=== PATIENT | male | born 2000 | race Asian ===

== ENCOUNTER 2022-12-11 09:49 | Emergency (ER) | payer BC ==
[~2022-12-11] VITALS: Ht 175.3 cm; Wt 86.2 kg
[2022-12-11 09:56] VITALS: BP 128/67; TEMP 97.9
== END 2022-12-11 11:26 | disposition home or self-care (01) ==
LOC: ED 09:49
DX: M54.59 Other low back pain (principal); X50.9XXA Other and unspecified overexertion or strenuous movements or postures, initial encounter; Y92.89 Other specified places as the place of occurrence of the external cause
CPT/HCPCS: 96372; 99283; J1885

== ENCOUNTER 2022-12-29 18:51 | Emergency (ER) | payer BC ==
[~2022-12-29] VITALS: Ht 175.3 cm; Wt 86.2 kg
[2022-12-29 18:51] VITALS: BP 146/99; TEMP 100.2
== END 2022-12-29 19:47 | disposition home or self-care (01) ==
LOC: ED 18:51
DX: K08.89 Other specified disorders of teeth and supporting structures (principal)
CPT/HCPCS: 96372; 99283; J1885